=== PATIENT | male | born 1990 | race Caucasian/White ===

== ENCOUNTER 2017-12-16 20:15 | Emergency (ER) | payer MEDICAID ==
[~2017-12-16] VITALS: Ht 180.3 cm; Wt 98.4 kg
[2017-12-16 21:37] VITALS: Ht 180.3 cm; Wt 98.4 kg
[2017-12-17 01:05] VITALS: BP 142/86
== END 2017-12-17 01:06 | disposition short-term general hospital (02) ==
LOC: ED 20:15
DX: S02.40DA Maxillary fracture, left side, initial encounter for closed fracture (principal); Z88.2 Allergy status to sulfonamides; W10.9XXA Fall (on) (from) unspecified stairs and steps, initial encounter; Y93.89 Activity, other specified; Y92.89 Other specified places as the place of occurrence of the external cause; Y99.8 Other external cause status
CPT/HCPCS: 90714; J2270